=== PATIENT | male | born 1990 | race Two or more races ===

== ENCOUNTER 2022-02-28 12:45 | Emergency (ER) | payer MEDICAID ==
[~2022-02-28] VITALS: Ht 172.7 cm; Wt 72.7 kg
[2022-02-28 13:00] VITALS: BP 123/87
[2022-02-28] MEDS ORDERED: DexAMETHasone SOD PHOS 10MG/1ML VIAL INJ IM ONE (13:45)
[2022-02-28] MEDS ORDERED: cefTRIAXone SOD 1,000 MG VL IM ONE (13:45)
[2022-02-28] MEDS ORDERED: ACET-1080 PO (13:50)
[2022-02-28] MEDS ORDERED: AZIT500T66 PO (13:50)
[2022-02-28] MEDS ORDERED: LIDO2SOL23 MT (13:50)
== END 2022-02-28 13:55 | disposition home or self-care (01) ==
LOC: ER 12:45
DX: U07.1 COVID-19 (principal); J03.90 Acute tonsillitis, unspecified; Z79.2 Long term (current) use of antibiotics; Z79.899 Other long term (current) drug therapy
CPT/HCPCS: 96372; 99284; J0696; J1100

== ENCOUNTER 2022-03-02 19:44 | Emergency (ER) | payer MEDICAID ==
[~2022-03-02 19:44] MED LIST: ACET-1080 PO; AZIT500T66 PO; LIDO2SOL23 MT
[2022-03-03] MEDS ORDERED: AMOX-277 PO (09:16)
[2022-03-03] MEDS ORDERED: PRED20TA2 PO (09:16)
[2022-03-03] MEDS ORDERED: IBUP800T27 PO (09:16)
[2022-03-03] MEDS ORDERED: ONDA-144 PO (09:18)
== END 2022-03-02 20:44 | disposition left against medical advice (07) ==
LOC: ER 19:44
DX: R10.9 Unspecified abdominal pain (principal); Z53.21 Procedure and treatment not carried out due to patient leaving prior to being seen by health care provider

== ENCOUNTER 2022-03-03 07:47 | Emergency (ER) | payer MEDICAID ==
[~2022-03-03] VITALS: Ht 172.7 cm; Wt 75.2 kg
[2022-03-03] MEDS ORDERED: ACETAMINOPHEN 325 MG TAB PO ONE (08:15)
[2022-03-03 08:52] VITALS: BP 126/78
[2022-03-03] MEDS ORDERED: SODIUM CHLORIDE 0.9% 1,000 ML IV ONE (09:00)
[2022-03-03] MEDS ORDERED: cefTRIAXone 1GM/50ML D5W 50 ML IV ONE (09:00)
[2022-03-03] MEDS ORDERED: methylPREDNISolone SOD SUCC 125 MG/2 ML VL IV ONE (09:00)
[2022-03-03] MEDS ORDERED: ONDANSETRON ODT 4 MG TAB PO ONE (09:15)
[2022-03-03] MEDS ORDERED: PRED20TA2 PO (09:16)
[2022-03-03] MEDS ORDERED: IBUP800T27 PO (09:16)
[2022-03-03] MEDS ORDERED: AMOX-277 PO (09:16)
[2022-03-03] MEDS ORDERED: ONDA-144 PO (09:18)
[2022-03-03 09:39] LABS: Basophils # (auto) 0.1 10 ^3/uL (0-0.2); Basophils % (auto) 0.5 % (0.0-2.0); Eosinophils # (auto) 0.2 10 ^3/uL (0-0.8); Eosinophils % (auto) 1.8 % (0.0-7.0); Hematocrit 46.5 % (41.0-53.0); Hemoglobin 15.5 g/dL (13.5-17.5); Lymphocytes # (auto) 1.5 10 ^3/uL (0.4-5.4); Lymphocytes % (auto) 11.7 % (10.0-50.0); Mean Corpuscular Hemoglobin 29.5 pg (28.0-32.0); Mean Corpuscular Hgb Conc. 33.4 g/dL (32.0-36.0); Mean Corpuscular Volume 88.2 fL (80.0-100.0); Monocytes # (auto) 1.7 10 ^3/uL (0-1.3); Monocytes % (auto) 13.5 % (0.0-12.0); Neutrophils # (auto) 9.2 10 ^3/uL (1.6-8.6); Neutrophils % (auto) 72.5 % (37.0-80.0); Red Blood Cells 5.27 10^6/uL (4.5-5.90); Red Cell Distribution Width 13.2 % (11.8-14.3); White Blood Cell 12.7 10^3/uL (4.4-10.8)
[2022-03-03 10:01] LABS: Albumin 3.1 g/dL (3.4-5.0); Calcium 8.7 mg/dL (8.5-10.1)
[2022-03-03 10:03] LABS: BUN/Creatinine Ratio 13.3; Bilirubin, Total 0.6 mg/dL (0.2-1.0); Total Protein 7.9 g/dL (6.4-8.2)
== END 2022-03-03 11:00 | disposition home or self-care (01) ==
LOC: ER 07:47
DX: J02.0 Streptococcal pharyngitis (principal); Z20.822 Contact with and (suspected) exposure to COVID-19
CPT/HCPCS: 36415; 71045; 80053; 83605; 85025; 86308; 87040; 87426; 87880; 96365; 96375; 99284; J0696; J2930; J7030; Q0162

== ENCOUNTER 2022-03-05 02:54 | Emergency (ER) | payer MEDICAID ==
[~2022-03-05 02:54] MED LIST changes: +AMOX-277 PO; +IBUP800T27 PO; +ONDA-144 PO; +PRED20TA2 PO
== END 2022-03-05 06:04 | disposition left against medical advice (07) ==
LOC: ER 02:54
DX: J02.9 Acute pharyngitis, unspecified (principal); Z53.21 Procedure and treatment not carried out due to patient leaving prior to being seen by health care provider

== ENCOUNTER 2022-03-05 08:45 | Emergency (ER) | payer MEDICAID ==
[~2022-03-05] VITALS: Ht 172.7 cm; Wt 77.4 kg
[2022-03-05 08:59] VITALS: BP 147/94
[2022-03-05] MEDS ORDERED: methylPREDNISolone SOD SUCC 125 MG/2 ML VL IV ONE (09:45)
[2022-03-05] MEDS ORDERED: CLINDAMYCIN 600MG IV 50 ML IV ONE (09:45)
[2022-03-05] MEDS ORDERED: SODIUM CHLORIDE 0.9% 1,000 ML IV ONE (09:45)
[2022-03-05] MEDS ORDERED: cefTRIAXone 1GM/50ML D5W 50 ML IV ONE (09:45)
== END 2022-03-05 11:00 | disposition home or self-care (01) ==
LOC: ER 08:45
DX: J03.90 Acute tonsillitis, unspecified (principal); Z79.1 Long term (current) use of non-steroidal anti-inflammatories (NSAID); Z79.2 Long term (current) use of antibiotics; Z79.899 Other long term (current) drug therapy; Z88.1 Allergy status to other antibiotic agents
CPT/HCPCS: 87070; 87880; 96365; 96367; 96375; 99284; J0696; J2930; J3490; J7030

== ENCOUNTER 2022-03-05 18:00 | Emergency (ER) | payer MEDICAID ==
[~2022-03-05] VITALS: Ht 172.7 cm; Wt 81.0 kg
[2022-03-05 18:05] VITALS: BP 127/80
== END 2022-03-05 23:12 | disposition left against medical advice (07) ==
LOC: ER 18:00 → EDBD 18:00 → ER 23:12
DX: J02.9 Acute pharyngitis, unspecified (principal); Z53.21 Procedure and treatment not carried out due to patient leaving prior to being seen by health care provider

== ENCOUNTER 2022-03-06 06:59 | Emergency (ER) | payer MEDICAID ==
[~2022-03-06] VITALS: Ht 172.7 cm; Wt 160.0 kg
[2022-03-06] MEDS ORDERED: CLINDAMYCIN 600MG IV 50 ML IV ONE (08:00)
[2022-03-06] MEDS ORDERED: methylPREDNISolone SOD SUCC 125 MG/2 ML VL IV ONE (08:00)
[2022-03-06] MEDS ORDERED: cefTRIAXone 1GM/50ML D5W 50 ML IV ONE (08:00)
[2022-03-06] MEDS ORDERED: KETOROLAC TROMETH 30 MG/ML 1ML VIAL IV ONE (08:00)
[2022-03-06 10:00] VITALS: BP 110/84
[2022-03-07] MEDS ORDERED: LIDO2SOL23 MT (07:57)
[2022-03-07] MEDS ORDERED: CLIN300C8 PO (07:57)
== END 2022-03-06 10:05 | disposition home or self-care (01) ==
LOC: ER 06:59
DX: J03.90 Acute tonsillitis, unspecified (principal); Z88.1 Allergy status to other antibiotic agents
CPT/HCPCS: 96365; 96368; 96375; 99284; J0696; J1885; J2930; J3490

== ENCOUNTER 2022-03-07 06:34 | Emergency (ER) | payer MEDICAID ==
[~2022-03-07] VITALS: Ht 172.7 cm; Wt 72.0 kg
[2022-03-07 06:34] VITALS: BP 127/86
[2022-03-07] MEDS ORDERED: methylPREDNISolone SOD SUCC 125 MG/2 ML VL IM ONE (07:45)
[2022-03-07] MEDS ORDERED: LIDOCAINE VISCOUS 2% 15ML UD PO ONE (07:45)
[2022-03-07] MEDS ORDERED: cefTRIAXone SOD 1,000 MG VL IM ONE (07:45)
[2022-03-07] MEDS ORDERED: LIDOCAINE 1% HCL (LOCAL ANESTH.) INJ 20ML MDV ONE (07:48)
[2022-03-07] MEDS ORDERED: CLIN300C8 PO (07:57)
[2022-03-07] MEDS ORDERED: LIDO2SOL23 MT (07:57)
== END 2022-03-07 08:29 | disposition home or self-care (01) ==
LOC: ER 06:34
DX: J03.90 Acute tonsillitis, unspecified (principal); Z79.2 Long term (current) use of antibiotics; Z79.899 Other long term (current) drug therapy; Z88.1 Allergy status to other antibiotic agents
CPT/HCPCS: 96372; 99284; J0696; J2001; J2930